=== PATIENT | female | born 1955 | race Two or more races ===

== ENCOUNTER → 2023-01-26 | Outpatient (CLI) | LOC: M SOG 07:52 | PROVIDERS: ATTEND Physician Assistant | DX: M79.645 Pain in left finger(s) (principal) ==

== ENCOUNTER → 2023-07-02 | Outpatient (CLI) | payer MEDICARE, BC | LOC: M RAD 10:42 | PROVIDERS: ATTEND Registered Nurse | DX: R60.0 Localized edema (principal) ==

== ENCOUNTER → 2023-07-09 | Outpatient (CLI) | payer MEDICARE, BC | LOC: M WHC 09:57 | PROVIDERS: ATTEND Registered Nurse | DX: Z12.31 Encounter for screening mammogram for malignant neoplasm of breast (principal) ==

== ENCOUNTER → 2024-01-17 | Outpatient (CLI) | payer MEDICARE, BC | LOC: M WHC 12:25 | PROVIDERS: ATTEND Registered Nurse | DX: M81.0 Age-related osteoporosis without current pathological fracture (principal) ==

== ENCOUNTER → 2024-08-07 | Outpatient (CLI) | payer MEDICARE, BC | LOC: M WHC 09:43 | PROVIDERS: ATTEND Registered Nurse | DX: Z12.31 Encounter for screening mammogram for malignant neoplasm of breast (principal) ==